=== PATIENT | female | born 1995 | race American Indian/Alaskan Native ===

== ENCOUNTER 2020-05-17 11:59 | Emergency (ER) | payer SELFPAY ==
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
[2020-05-17 13:59] VITALS: BP 126/88
== END 2020-05-17 14:00 | disposition home or self-care (01) ==
LOC: ED 11:59
DX: S13.9XXA Sprain of joints and ligaments of unspecified parts of neck, initial encounter (principal); S23.9XXA Sprain of unspecified parts of thorax, initial encounter; Z79.899 Other long term (current) drug therapy; V49.59XA Passenger injured in collision with other motor vehicles in traffic accident, initial encounter; Y92.410 Unspecified street and highway as the place of occurrence of the external cause; Y93.89 Activity, other specified; Y99.8 Other external cause status
CPT/HCPCS: 72070; 72125